=== PATIENT | male | born 1980 | race Caucasian/White ===

== ENCOUNTER 2017-04-30 03:36 | Emergency (ER) | payer OTHER ==
[~2017-04-30 03:36] MED LIST: DILANTIN KAPSE100 MG PO; NICODERM 14MG PA1 EA TD; PERCOCET 5-3251 EACH PO
[2017-04-30 05:04] LABS: BLOOD UREA NITROGEN 16 mg/dL (7-18); CALCIUM 8.5 mg/dL (8.7-10.7); CARBON DIOXIDE 25 mmol/L (21-32); CREATININE 1.2 mg/dL (0.6-1.3); GLUCOSE,RANDOM 93 mg/dL (70-99); POTASSIUM 3.8 mmol/L (3.5-5.1); SODIUM 143 mmol/L (136-145)
[2017-04-30 05:07] LABS: HEMATOCRIT 40.5 % (40-51); HEMOGLOBIN 13.6 g/dL (13.7-17.5); MEAN CORPUSCULAR HEMOGLOBIN 30.6 pg (27.0-33.0); MEAN CORPUSCULAR HGB CONC 33.6 g/dL (32.0-36.0); MEAN CORPUSCULAR VOLUME 91.4 fL (79-92); PLATELET COUNT 263 x10_3/uL (163-337); RED BLOOD COUNT 4.43 x10_6/uL (4.6-6.1); WHITE BLOOD COUNT 13.6 x10_3/uL (4.2-9.1)
== END 2017-04-30 07:03 | disposition home or self-care (01) ==
LOC: ER 03:36
PROVIDERS: Emergency Medicine
DX: J03.90 Acute tonsillitis, unspecified (principal); I10 Essential (primary) hypertension; F17.210 Nicotine dependence, cigarettes, uncomplicated; Z79.899 Other long term (current) drug therapy; Z88.0 Allergy status to penicillin
CPT/HCPCS: 36415; 70491; 80048; 85025; 86308; 87070; 87880; 96372; 99282-25; J7040; Q9967

== ENCOUNTER 2017-04-30 23:00 | Emergency (ER) | payer OTHER | END 2017-05-01 00:08 | disposition home or self-care (01) | LOC: ER 23:00 | DX: J03.90 Acute tonsillitis, unspecified (principal); F17.210 Nicotine dependence, cigarettes, uncomplicated; Z88.0 Allergy status to penicillin; Z79.899 Other long term (current) drug therapy | CPT/HCPCS: 96360; 99283-25; J2930 ==